=== PATIENT | male | born 1965 | race Hispanic/Latino ===

== ENCOUNTER → 2018-08-24 | Outpatient (CLI) | payer MEDICAID ==
[~2018-08-24] MED LIST: GADODIAMIDE 10 MMOL/20 ML ML IV ONE
== END | disposition home or self-care (01) ==
LOC: RAH 13:08
PROVIDERS: ATTEND Family Medicine
DX: G31.9 Degenerative disease of nervous system, unspecified (principal)
CPT/HCPCS: 70553; A9579

== ENCOUNTER → 2019-10-25 | Outpatient (CLI) | payer MEDICAID ==
[~2019-10-25] MED LIST changes: -GADODIAMIDE 10 MMOL/20 ML ML IV ONE; +GADODIAMIDE 10 MMOL/20 ML VIAL IV ONE
== END | disposition home or self-care (01) ==
LOC: RAH 11:04
PROVIDERS: ATTEND Family Medicine
DX: H49.02 Third [oculomotor] nerve palsy, left eye (principal)
CPT/HCPCS: 70553; A9579

== ENCOUNTER → 2022-11-05 | Outpatient (CLI) | payer MEDICAID | END | disposition home or self-care (01) | LOC: RAH 11:12 | PROVIDERS: ATTEND Internal Medicine Gastroenterology | DX: R10.13 Epigastric pain (principal); R11.0 Nausea | CPT/HCPCS: 78264; A9541 ==

== ENCOUNTER 2023-05-12 06:35 | Day surgery (SDC) | payer MEDICAID ==
[2023-05-11 16:33] VITALS: BP 142/78; PULSE 87; RESP 16
[~2023-05-12] VITALS: Ht 180.3 cm; Wt 93.3 kg
[~2023-05-12 06:35] MED LIST changes: +ALPR2TAB7 PO; -GADODIAMIDE 10 MMOL/20 ML VIAL IV ONE; +HYDR-4068 PO; +INSU100I35 SQ; +PANT20TA18 PO
[2023-05-12 06:45] VITALS: BP 142/78; PULSE 87; RESP 16
[2023-05-12] MEDS ORDERED: PROPOFOL 10 MG/ML 20ML VIAL IV ONE (08:27)
== END 2023-05-12 10:45 | disposition home or self-care (01) ==
LOC: DAH 06:35 → ENDO 06:35
PROVIDERS: ATTEND Surgery
DX: R13.10 Dysphagia, unspecified (principal); R14.0 Abdominal distension (gaseous); K20.90 Esophagitis, unspecified without bleeding; K31.89 Other diseases of stomach and duodenum; I10 Essential (primary) hypertension; E08.43 Diabetes mellitus due to underlying condition with diabetic autonomic (poly)neuropathy; K31.84 Gastroparesis; E55.9 Vitamin D deficiency, unspecified; E66.01 Morbid (severe) obesity due to excess calories; F41.9 Anxiety disorder, unspecified; Z79.899 Other long term (current) drug therapy; Z90.49 Acquired absence of other specified parts of digestive tract; Z98.890 Other specified postprocedural states; Z82.49 Family history of ischemic heart disease and other diseases of the circulatory system; Z98.84 Bariatric surgery status; Z68.30 Body mass index [BMI] 30.0-30.9, adult
CPT/HCPCS: 82948; 43239; J3490; A4620; A4215 ×2; A4223; A4657 ×2; A7002; A4222; A4221; A4663; J7030; A4606; J2704